=== PATIENT | female | born 1985 | race Caucasian/White ===

== ENCOUNTER 2017-11-23 20:57 | Emergency (ER) | payer MEDICAID ==
[~2017-11-23] VITALS: Ht 157.5 cm; Wt 52.2 kg
[2017-11-23] MEDS ORDERED: HYDROMORPHONE 4 MG TABLET (21:35)
[2017-11-23] MEDS ORDERED: PROCHLORPERAZINE 10 MG TAB (21:35)
--- NOTE | 2017-11-23 22:30 | NUR ---
per ERMD simons cather removed. pt tolerated well
--- NOTE | 2017-11-23 22:51 | NUR ---
Patient discharged to home in stable conditon. Written and verbal after care instructions given with RX. Patient verbalizes understanding of instructions.
== END 2017-11-23 22:52 | disposition home or self-care (01) ==
LOC: ER 20:58
DX: T83.098A Other mechanical complication of other urinary catheter, initial encounter (principal); R39.15 Urgency of urination
CPT/HCPCS: A4663

== ENCOUNTER 2017-11-25 03:17 | Emergency (ER) | payer MEDICAID ==
[~2017-11-25] VITALS: Ht 154.9 cm; Wt 47.6 kg
[~2017-11-25 03:17] MED LIST: HYDROMORPHONE 4 MG TABLET; PROCHLORPERAZINE 10 MG TAB
--- NOTE | 2017-11-25 04:10 | NUR ---
PLACED IN ROOM 4B FOR ER EVAL.
--- NOTE | 2017-11-25 04:12 | NUR ---
ERMD AT BEDSIDE TALKING WITH PT AND FAMILY.
[2017-11-25] MEDS ORDERED: HYDROMORPHONE 1 MG/1 ML DISP.SYRIN IV ONE (04:30)
[2017-11-25] MEDS ORDERED: ONDANSETRON 4 MG/2 ML VIAL IV ONE (04:30)
--- NOTE | 2017-11-25 04:30 | NUR ---
2 ATTEMPTS MADE TO INSERT DAVIS CATHETER WITHOUT SUCCESS.INFLAMMATION NOTED IN VAGINAL AREA FROM PREVIOUS RADIATION.PT UNABLE TO TOLERATE INSERTION OF CATHETER EVEN AFTER GETTING PAIN MEDICATKION.PT AND FAMILY REFUSED ANY MORE ATTEMPTS TO CATHETERIZE. NOTIFIED.
[2017-11-25] MEDS ORDERED: ONDANSETRON 4 MG/2 ML VIAL ONE (04:36)
[2017-11-25] MEDS ORDERED: HYDROMORPHONE 2 MG/1 ML DISP.SYRIN ONE (04:36)
--- NOTE | 2017-11-25 04:45 | NUR ---
MD AT BEDSIDE TALKING WITH PT AND FAMILY ABOUT IMPORTANCE OF CATHETER AND THEY STILL REFUSED.
--- NOTE | 2017-11-25 04:50 | NUR ---
AMEE CALLED [facility] AND SPOKE TO ER CHARGE NURSE.SHE EXPLAINED THAT PT HAD BEEN TO [facility] FOR CARE AND THAT WE ARE DISCHARGING HER AND SENDING HER BACK TO HER DRS THERE FOR FOLLOW UP ATTEMPTED TO GET PHONE NUMBER OF UROLOGIST THAT TOOK CARE OF HER AND THEY DID NOT KNOW NAME OR HAVE ANY PHONE NUMBER TO GIVE US.BECAUSE WE COULD NOT SPEAK WITH HER UROLOGIST AND DISCUSS HER UNDERLYING PROBLEM WE AND FAMILY FELT IT WAS BETTER FOR THEM TO GO THERE.
--- NOTE | 2017-11-25 05:10 | NUR ---
SALINE LOCK D/C CATH TIP INTACT.PT D/C FROM ER WITH ACI GIVEN.THEY VERBALIZED UNDERSTANDING
== END 2017-11-25 05:15 | disposition home or self-care (01) ==
LOC: ER 03:19
DX: R33.9 Retention of urine, unspecified (principal); N32.9 Bladder disorder, unspecified
CPT/HCPCS: 51702; 96374; 96375; 99284; A4663; J1170; J2405